=== PATIENT | male | born 2000 | race Caucasian/White ===

== ENCOUNTER 2025-04-19 00:12 | Emergency (ER) | payer BC, SELFPAY ==
--- NOTE | 2025-04-19 00:15 | ED.WOUNDLAC ---
HPI - Wound/Laceration General Chief Complaint: Syncope Stated Complaint: Lt Hand lacerations, syncope Time Seen by Provider: 04/19/25 00:15 History of Present Illness HPI narrative: Patient is a 25-year-old male without any significant past medical history comes into the ED from home for evaluation of syncope and left hand laceration. He states that today he was watching 8 mild, states he did have some alcoholic beverages as well as did smoke some pot, states that when he stood up to walk felt lightheaded dizzy states that he passed out states that he fell hit his hand on a glass frame which caused a cut, he is not on any blood thinners states he was able to stand bear weight ambulate immediately after, according to family no seizure-like activity. 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 He denies any actual headache visual disturbance chest pain shortness breath fever chills nausea vomiting abdominal pain or any other GI/ symptoms at this time. Related Data Allergies Allergy/AdvReac Type Severity Reaction Status Date / Time soy Allergy Mild GI upset Verified 04/19/25 00:22 Review of Systems Review of Systems Narrative: General: Denies fever, chills, weight loss HEENT: Denies headache, eye drainage, eye irritation, head trauma, sore throat, voice change Cardiovascular: Denies any chest pain, palpitations, tachycardia Respiratory: Denies any shortness of breath, cough, wheeze, stridor GI/: Denies any abdominal pain, nausea, vomiting, diarrhea, bright red blood per rectum, melanotic stools, urinary frequency, urinary retention, dysuria, hematuria MSK: Denies any joint pain, muscle pains, swelling Skin: Denies any rashes, lesions, discoloration Neuro: Positive syncope Denies any headache, lightheadedness, dizziness weakness Psych: Denies SI/HI Exam Narrative Exam Narrative: General: Cooperative, well-developed, not in acute distress HEENT: Normocephalic, atraumatic, PERRLA, normal sclera, eyelids normal Neck: Active full range of motion, atraumatic Chest: Normal to inspection, negative crepitus, no overlying erythema ecchymosis Respiratory: Normal respiratory effort, not in acute respiratory distress, clear to auscultation bilaterally negative cough, wheeze, tachypnea, rhonchi, rales Cardiology: Regular rate rhythm negative gallop, murmur, rubs GI/: No tenderness to palpation, soft, non rigid, normal to inspection, exam deferred MSK: Full active range of motion in all 4 extremities, atraumatic, no tenderness to palpation of any bony prominences Skin: Superficial v-shaped laceration to the dorsal aspect of the left hand superficial no foreign body no bony and/or tendon involvement he is neurovascularly intact otherwise bleeding controlled Neuro: Alert awake oriented x3, moves all 4 extremities spontaneously, cranial nerves intact, able to answer all questions appropriately follows commands appropriately Psych: Cooperative, negative suicidal or homicidal ideations Initial Vital Signs Initial Vital Signs: Vital Signs Temperature 98 F 04/19/25 00:20 Pulse Rate 104 H 04/19/25 00:20 Respiratory Rate 16 04/19/25 00:20 Blood Pressure 150/73 H 04/19/25 00:20 Pulse Oximetry 97 04/19/25 00:20 Oxygen Delivery Method Room Air 04/19/25 00:20 Procedures Laceration Repair Laceration 1: Time of procedure: 00:58 Site: hand Side (If applicable): left Size (cm): 2 Description: other (V-shaped) Depth: simple, single layer Local Anesthetic: lidocaine 1% Amount of anesthesia used (mL): 3 Pre-repair: wound explored, irrigated extensively and deep structures intact Skin layer closed with: other (Ethilon) Skin layer suture size: 4-0 Number of sutures: 6 Technique: simple, interrupted Course Orders Ordered: ED Orders 04/19/25 00:03 Complete Blood Count AUTO DIFF Stat Comprehensive Metabolic Panel Stat Lipase Stat MAG [Magnesium] Stat Troponin & CK Cardiac Panel Stat 04/19/25 00:55 XR chest 1V Stat EKG-12 Lead Stat Discontinued Medications Diphtheria/Tetanus/Acell Pertussis (Tet,Diph,Pertuss(Acell),Vac/Pf 0.5 Ml Syringe) 0.5 ml IM .ONCE ONE Stop: 04/19/25 00:56 Last Admin: 04/19/25 01:10 Dose: 0.5 ml Vital Signs Vital signs: Vital Signs - 8 hr 04/19/25 00:20 04/19/25 01:07 04/19/25 01:08 Temperature 98 F Pulse Rate 104 H 90 92 H Respiratory Rate 16 Blood Pressure 150/73 H Pulse Oximetry 97 96 95 Oxygen Delivery Method Room Air 04/19/25 01:08 Temperature Pulse Rate Respiratory Rate Blood Pressure 138/58 L Pulse Oximetry Oxygen Delivery Method MDM - Wound/Laceration Lab Data 04/19/25 00:03 04/19/25 00:03 Labs: Lab Results 04/19/25 Range/Units 00:03 WBC 10.1 (4.5-11.0) X10^3/uL RBC 4.68 (4.5-5.9) X10^6/uL Hgb 15.3 (13.5-17.5) g/dL Hct 43.9 (41-53) % MCV 93.7 (80-100) fL MCH 32.8 (26-34) PG MCHC 34.9 (30-36) % RDW 12.9 (11.6-14.8) % Plt Count 271 (150-400) X10^3/uL Neut % (Auto) 65.7 (50-75) % Lymph % (Auto) 25.2 (25-40) % [place] % (Auto) 7.1 (3-14) % Eos % (Auto) 1.3 L (2-4) % Baso % (Auto) 0.7 (0-2) % Neut # (Auto) 6600 (1035-6769) /uL Lymph # (Auto) 2500 (0880-8290) /uL [place] # (Auto) 700 (0-900) /uL Eos # (Auto) 100 (0-450) /uL Baso # (Auto) 100 (0-100) /uL Sodium 135 L (137-145) mmol/L Potassium 3.6 (3.4-5.1) mmol/L Chloride 102 (98-107) mmol/L Carbon Dioxide 21 L (22-32) mmol/L BUN 14 (9-20) mg/dL Creatinine 0.92 (0.66-1.25) mg/dL Estimated GFR > 60 (>60) mL/min BUN/Creatinine Ratio 15.2 (6-22) Glucose 113 H (70-99) mg/dL Calcium 9.0 (8.4-10.2) mg/dL Magnesium 1.9 (1.6-2.3) mg/dL Total Bilirubin 0.4 (0.2-1.3) mg/dL AST 39 (17-59) IU/L ALT 30 (<50) IU/L Alkaline Phosphatase 72 (38-126) U/L Total Creatine Kinase 92 (55-170) U/L Troponin I < 0.012 (0.01-0.034) ng/mL Total Protein 6.9 (6.3-8.2) g/dL Albumin 4.4 (3.5-5.0) g/dL Globulin 2.5 (1.7-4.1) g/dL Albumin/Globulin Ratio 1.8 (1.0-2.8) Lipase 70 (23-300) U/L ECG Data Interpretation: EKG interpreted ED physician sinus 90 beats per minute, QTC 408, normal axis, QRS WA interval within normal limits, no STEMI MDM Narrative Medical decision making narrative: Patient is a 25-year-old male presenting for syncope and hand laceration states that he was watching a movie, states that he was having some alcoholic beverages states that he was also smoking a joint, he states that he got up to go use the restroom during that timeframe I stated that he started feeling lightheaded dizzy and passed out we will it was witnessed, no head strike, family at bedside states it lasted no more than 20 seconds no postictal phase no seizure-like activity he states that he did hit his hand on a picture frame, on exam there is a 2 cm v-shaped laceration to the dorsal aspect of the left hand superficial no bony or tendon involvement neurovascularly intact this was repaired with 6 sutures, patient had lab work imaging EKG performed in the emergency department, patient's tetanus was updated. EKG was nonischemic, troponin negative, no leukocytosis, patient with a [place] syncope score of -2, patient's symptoms more likely secondary to vasovagal syncope, patient was given strict return precautions she verbalized understanding of this and agrees to being discharged home with outpatient follow up Discharge Plan Departure Patient Disposition: Home Clinical Impression: Vasovagal syncope, Hand laceration Instructions: DI for Syncope in Adults (Fainting), DI for Laceration Repair -- Simple Activity Restrictions/Additional Instructions: You have sutures that need to be removed in a proximally 1 week Please follow up with the primary care doctor as needed Please read the discharge instructions sheet carefully and bring all papers to all doctor follow-up visits, as it may contain information that your doctor may want to see. Disease processes change and evolve, if your symptoms worsen or if you develop any new symptoms that are concerning to you please return for evaluation. Your evaluation today does not show any evidence of any life-threatening/serious illnesses requiring admission to the hospital or surgery. Please follow-up with your doctor for re-evaluation in approximately 1 day. Seek immediate medical attention for any worrisome symptoms. *If you do not have a primary care provider please contact the [facility] Resource line at [phone]. They will ask some questions about your medical history and help get you set up with a doctor in the community. Stand Alone Forms: Patient Portal/API
[2025-04-19 00:20] VITALS: BP 150/73; PULSE 104; RESP 16; TEMP 36.6; O2SAT 97; BMI 36.6
--- NOTE | 2025-04-19 00:55 | DI.RAD.S_ITS ---
PROCEDURE: XR CHEST 1V INDICATIONS: syncope TECHNIQUE: One view of the chest was acquired. COMPARISON: None. FINDINGS: Surgical changes and devices: None. Lungs and pleura: Lungs are clear. No pleural effusions or pneumothorax. Mediastinum: Mediastinal contours appear normal. Heart size is normal. Bones and chest wall: No suspicious bony lesions. Overlying soft tissues appear unremarkable. IMPRESSION: No acute pulmonary process. Dictated by: Pam Stone M.D. on 04/19/2025 at 1:09 Approved by: Pam Stone M.D. on 04/19/2025 at 1:09
--- NOTE | 2025-04-19 00:55 | EKG_ITS ---
[address] [address] Test Date: 2025-04-19 Pat Name: Kevin Donaldson Department: Room: Gender: Male Director Video: HAYLEE : 2000 Requested By: Order Number: [id number] Reading MD: Ez Arrieta Measurements Intervals [place] Rate: 90 P: 71 IN: 152 QRS: 48 QRSD: 92 T: 41 QT: 334 QTc: 408 Interpretive Statements Normal sinus rhythm Electronically Signed On 04-19-2025 13:50:30 PDT by Ez Arrieta
[2025-04-19 01:05] LABS: Add Manual Diff / Slide Review NO; Hematocrit 43.9 % (41-53); Hemoglobin 15.3 g/dL (13.5-17.5); Lymphocytes Absolute Auto 2500 /uL (1100-4500); Mean Corpuscular HGB Conc 34.9 % (30-36); Mean Corpuscular Hemoglobin 32.8 PG (26-34); Mean Corpuscular Volume 93.7 fL (80-100); Platelet Count 271 X10^3/uL (150-400)
[2025-04-19 01:07] VITALS: PULSE 90; O2SAT 96
[2025-04-19 01:08] VITALS: BP 138/58; PULSE 92; O2SAT 95
[2025-04-19] MEDS: TET,DIPH,PERTUSS(ACELL),VAC/PF 0.5 ML SYRINGE IM (01:10)
[2025-04-19 01:15] LABS: Magnesium 1.9 mg/dL (1.6-2.3)
[2025-04-19 01:16] LABS: Alanine Aminotransferase 30 IU/L (<50); Albumin 4.4 g/dL (3.5-5.0); Albumin Globulin Ratio 1.8 (1.0-2.8); Alkaline Phosphatase 72 U/L (38-126); Blood Urea Nitrogen 14 mg/dL (9-20); Calcium 9.0 mg/dL (8.4-10.2); Carbon Dioxide 21 mmol/L (22-32); Chloride 102 mmol/L (98-107); Creatine Kinase 92 U/L (55-170); Estimated Glomerular Filt Rate > 60 mL/min (>60); Globulin 2.5 g/dL (1.7-4.1); Glucose 113 mg/dL (70-99); HEMOLYSIS 26 (0-50); Lipase 70 U/L (23-300); Potassium 3.6 mmol/L (3.4-5.1); Sodium 135 mmol/L (137-145); Total Protein 6.9 g/dL (6.3-8.2)
[2025-04-19 01:28] LABS: Troponin I < 0.012 ng/mL (0.01-0.034)
[2025-04-19 01:30] VITALS: BP 120/57; PULSE 79; O2SAT 94
== END 2025-04-19 01:41 | disposition home or self-care (01) ==
PROVIDERS: Emergency Provider Student in an Organized Health Care Education/Training Program
DX: S61.412A Laceration without foreign body of left hand, initial encounter (principal); R55 Syncope and collapse; W18.30XA Fall on same level, unspecified, initial encounter; Z23 Encounter for immunization
CPT/HCPCS: 12001; 36415; 71045; 80053; 82550; 83690; 83735; 84484; 85025; 90471; 93005; 99283; 99284; 90715